=== PATIENT | female | born 1975 | race Caucasian/White ===

== ENCOUNTER 2016-10-14 11:00 | Inpatient (IN) ==
[2016-10-14] MEDS ORDERED: Famotidine 20 MG/2 ML VIAL IVP PRN (11:21)
[2016-10-14] MEDS ORDERED: Naloxone 0.4 MG/ML INJ IVP PRN (11:21)
[2016-10-14] MEDS ORDERED: Ondansetron 4 MG/2 ML VIAL IVP PRN (11:21)
[2016-10-14] MEDS ORDERED: miSOPROStol 25 MCG TABLET VG PRN (11:23)
--- NOTE | 2016-10-14 11:49 | OB/GYN History & Physical ---
Date of Encounter: 10/14/16 Time of Encounter: 11:46 Assessment and Plan (1) 39 weeks gestation of Current visit: Yes Status: Chronic (2) Oligohydramnios Current visit: Yes Status: Acute Plan to augment and deliver. FHT's 130 with contractions Qualifiers: Fetus number: single or unspecified fetus Trimester: third trimester Qualified Code(s): O41.03X0 - Oligohydramnios, third trimester, not applicable or unspecified (3) AMA (advanced maternal age) multigravida 35+ Current visit: Yes Status: Acute Qualifiers: Trimester: third trimester Qualified Code(s): O09.523 - Supervision of elderly multigravida, third trimester (4) Obesity complicating Current visit: Yes Status: Acute History of Present Illness Chief complaint: sent from office with oligohydramnios induction HPI: Ms. Thomason is a 41 year old female G3 P 2-0-0-2 at 39 1/7 weeks seen in office with ultrasound showing BIBIANA 3.9 cm evaluated and sent here for induction of labor. Patient states she has been crampy the past week, but denies contractions , vaginal bleeding, or leaking fluid. She reports good movement. has been complicated by AMA, chronic hypertension, and obesity. Past Med Surg Social Fam HX - Past Medical History Source: patient Medical history: hypertension Psychiatric history: anxiety - Past Surgical History Surgical History: no surgical history - Social History Smoking Status: Former smoker Alcohol use: none Drug use: none Obstetrical History - Pregnancies : 3 Para: 2 Term: 2 : 0 Livin Medications and Allergies Aspirin 81 mg PO DAILY 10/14/16 [History] Methyldopa [Aldomet] 500 mg PO BID 10/14/16 [History] Pnv with Ca,No.72/Iron,Carb/FA [ Plus Iron Tablet] 1 each PO 10/14/16 [ History] Allergies No Known Allergies Allergy (Verified 10/14/16 11:52) Review of System OB All systems PM: reviewed and no additional remarkable complaints except as stated Exam - Constitutional Constitutional: well developed, well nourished, no acute distress, obese - HEENT HEENT: EOMI - Lungs Respiratory exam: CTAB - Cardiovascular Cardiovascular exam: RRR - Abdomen Abdomen: Present: bowel sounds normal, gravid, non tender - Extremities Extremities exam: warm - Cervix Dilation: 3 Effacement: 50 Station: -2 - Comments Comments: Ultrasound today EFW 8 lb 1 oz; BIBIANA 3.9 cm Results All other labs normal. - VTE Reasons for not Prescribing Prophylaxis: Treatment not Indicated - Low risk for VTE
[2016-10-14 11:50] LABS: Basophils # 0.1 K/mcL (0.0-0.2); Basophils % 0.6 %; Eosinophils # 0.2 K/mcL (0.0-0.6); Eosinophils % 1.7 %; Hematocrit 38.7 % (35.3-44.9); Immature Granulocytes % 0.3 % (0-4); Lymphocytes # 2.5 K/mcL (0.6-4.6); Lymphocytes % 24.5 %; Mean Corpuscular HGB Conc 33.6 g/dL (31.6-35.5); Mean Corpuscular Hemoglobin 28.2 pg (28.0-33.3); Mean Corpuscular Volume 83.9 fL (83.0-100.0); Mean Platelet Volume 10.7 fL (9.4-12.4); Monocytes # 0.7 K/mcL (0.0-1.3); Monocytes % 7.3 %; Neutrophils # 6.5 K/mcL (1.6-8.9); Platelet Count 419 K/mcL (140-400); Red Blood Count 4.61 M/mcL (3.82-4.97); Red Cell Distribution Width 16.5 % (11.5-14.5); Segmented Neutrophils % 65.6 %
[2016-10-14] MEDS ORDERED: Lidocaine -MPF 2% 5 ML VIAL INFILT ONE (11:51)
[2016-10-14] MEDS ORDERED: Ringers Solution, Lactated 1,000 ML ONE (12:28)
[2016-10-14] MEDS: Ringers Solution, Lactated 1,000 ML IVC SCH ×3 (12:41→23:00)
--- NOTE | 2016-10-14 13:37 | Anesthesia Evaluation PreOp ---
Date of Encounter: 10/14/16 Time of Encounter: 13:35 - Past History Planned Operation: philip Cardiac History: HTN Pulmonary History: Denies Any Significant HX PRINTING ESTIMATOR History: Denies Any Significant HX Other Medical History: Denies Any Significant HX Anesthesia History: No Prior Anesthetic Complications, Past Anesthesia (wisdom teeth) : Yes (39, ) Alcohol Use: none Drug use: none Medications and Allergies Aspirin 81 mg PO DAILY 10/14/16 [History] Methyldopa [Aldomet] 500 mg PO BID 10/14/16 [History] Pnv with Ca,No.72/Iron,Carb/FA [ Plus Iron Tablet] 1 each PO DAILY 10/14 [History] Allergies No Known Allergies Allergy (Verified 10/14/16 12:00) - Meds/Allergy Pre-op Review Medications Reviewed: Yes Allergies Reviewed: Yes Beta Blockers on Current Med List: No Anesthesia Results - Labs 10/14/16 11:35 Anesthesia Exam O2 Sat Height 1.65 m Weight 126.3 kg 159/86 Height: 65 Weight: 126 - HEENT Pupil (Motor): Pupils equal Mallampati: III Teeth: Normal Oral Opening: Greater than 3 - PRINTING ESTIMATOR LOC: Oriented PRINTING ESTIMATOR Motor: Normal RUE, Normal LUE, Normal RLE, Normal LLE, Normal Face PRINTING ESTIMATOR Sensory: Normal: RUE, LUE, RLE, LLE, Face - Cardiac Rhythm: Regular Murmur: None JVD: No Carotid Bruit: No - Pulmonary Breath Sounds: bilateral Clear Respiratory Effort: Symmetrical Anesthesia Assess/Plan ASA Score: 2 Modified Yulia Scale for Level of Consciousness: Cooperative, oriented, and tranquil Anesthetic Plan: Regional Monitoring Plan: Standard Monitors
[2016-10-14] MEDS ORDERED: Oxytocin 20 units/ LR 1000 mL 20 UNIT/1,000 ML BAG IVC ONE (14:43)
[2016-10-14] MEDS ORDERED: Epidural Premix (fent/bupiv) 110 ML EP ONE ×2 (14:55→22:42)
[2016-10-14] MEDS ORDERED: Bupivacaine-MPF 0.25% 10 ML VIAL ONE (14:55)
[2016-10-14] MEDS ORDERED: *HR* FentaNYL (PF) 100 MCG/2 ML VIAL ONE (14:55)
[2016-10-14] MEDS ORDERED: *HR* FentaNYL (PF) 100 MCG/2 ML VIAL EP ONE (17:13)
[2016-10-14] MEDS ORDERED: Bupivacaine-MPF 0.25% 10 ML VIAL EP ONE (17:13)
[2016-10-14] MEDS ORDERED: EPHEDrine 50 MG/ML VIAL IVP PRN (17:13)
[2016-10-14] MEDS ORDERED: Epidural Premix (fent/bupiv) 110 ML EP SCH (17:15)
--- NOTE | 2016-10-14 17:21 | Anesthesia Procedures ---
Date of Encounter: 10/14/16 Time of Encounter: 14:59 Procedures: Anesthesia - Epidural/Spinal Patient ID/Chart reviewed: Yes Patient examined: Yes OB Eval: Gestational age: 39 OB Eval: : 3 OB Eval: Hx Para: 2 OB Eval: Dilated at (cm): 3 OB Eval: Contractions: Non-stressed pattern Consent Obtained: Yes Supplemental Oxygen: None/Room Air Site Prep: Aseptic Technique, 0.5% Chlorhexidine/Alcohol Patient position: upright Local Anesthetic: Lidocaine 1% Amount of Local Anesthetic used: 3 Touhy Needle Gauge: 18 Touhy Needle Depth (cm): 7 Catheter Depth at Skin (cm): 14 Test Dose (1.5% Lido + Epi): Volume given (mls): 3 Test Dose Result: Negative Loading Dose: 0.25% Marcaine (mls): 5 Loading Dose: Fentanyl (mcg): 100 Loading Dose: Other: 3ml nss Loading Dose Administered: Thru Touhy Needle Infusion Med: 0.125% Bupivacaine w/ 2 mcg/ml Fentanyl Catheter Secured in Place: Tegaderm Interspace Used: L3-L4 Loss of Resistance (AMANDA): Yes Blood: No CSF: No Paresthesia: No Procedure: Strict asepsis, good amanda, one attempt, fhr unchanged Vitals + FHT's: 122/86 hr 87 rr 18
[2016-10-14] MEDS ORDERED: Oxytocin 20 units/ LR 1000 mL 20 UNIT/1,000 ML BAG IVC SCH (18:16)
--- NOTE | 2016-10-14 23:34 | OB Labor Progress Note ---
Date of Encounter: 10/14/16 Time of Encounter: 23:32 Labor Progress Note - Subjective Subjective: Patient comfortable. Denies complaints - Cervix Cervix: 4/50/-3 vertex - Heart Tones Heart Tones: baseline 125, category 1 - Sinclair Sinclair: q 2 minutes - Interventions Interventions: AROM with small amount of clear fluid. IUPC placed without difficulty - Plan Plan: Continue with pitocin induction for oligohydramnios
[2016-10-15] MEDS ORDERED: Epidural Premix (fent/bupiv) 110 ML EP ONE (05:38)
[2016-10-15] MEDS ORDERED: *HR* Ropivacaine/PF 0.2% 10 ML AMPUL ONE (07:47)
[2016-10-15] MEDS ORDERED: *HR* FentaNYL (PF) 100 MCG/2 ML VIAL ONE (07:47)
[2016-10-15] MEDS ORDERED: Oxytocin 20 units/ LR 1000 mL 20 UNIT/1,000 ML BAG IVC SCH (09:04)
--- NOTE | 2016-10-15 09:12 | OB Labor Progress Note ---
Date of Encounter: 10/15/16 Time of Encounter: 09:10 Labor Progress Note - Subjective Subjective: patient needed a redose of her epidural because she was feeling her ctxs, she's now comfortable - Vital Signs Vital Signs: 130-180's/70's-90's(patient has CHTN, the 180 systolic was retaken a minute late and it was mild range, this was before her redose of epidural) - Cervix Cervix: still 0 station, fully dilated - Heart Tones Heart Tones: 125/mod martin/+accels, +non rec martin decels - [place]: irreg - Plan Plan: restart pitocin, cont monitoring strip allow to labor down before pushing
[2016-10-15] MEDS ORDERED: Ketamine *HR* 500 MG/10 ML MDV ONE (10:13)
[2016-10-15] MEDS ORDERED: *HR* Morphine Sulfate/PF 5 MG/10 ML AMPUL ONE (10:15)
[2016-10-15] MEDS ORDERED: *HR* Oxytocin 10 UNIT/ML VIAL IM ONE ×2 (10:19→11:23)
[2016-10-15] MEDS ORDERED: Ringers Solution, Lactated 1,000 ML ONE ×2 (10:19→11:22)
[2016-10-15] MEDS ORDERED: *HR* HYDROmorphone (PF) 1 MG/ML SYRINGE ONE (11:20)
[2016-10-15] MEDS ORDERED: Ondansetron 4 MG/2 ML VIAL ONE (11:21)
[2016-10-15] MEDS ORDERED: *HR* Promethazine 25 MG/ML VIAL IVP PRN (12:10)
[2016-10-15] MEDS ORDERED: Naloxone 0.4 MG/ML INJ IVP PRN (12:10)
[2016-10-15] MEDS ORDERED: Ondansetron 4 MG/2 ML VIAL IVP PRN ×2 (12:10→14:11)
[2016-10-15] MEDS ORDERED: *HR* HYDROmorphone (PF) 1 MG/ML SYRINGE IVP PRN (12:10)
--- NOTE | 2016-10-15 13:45 | OB/GYN Procedure Note ---
Section - Date of procedure: 10/15/16 Preop diagnosis: arrest of descent, category 2 FHT tracing Post-op diagnosis: same Procedure: section Surgeon: Yair Paulino Estimated blood loss (cc): 600 Anesthesiologist: Michael Khan Overnight Caregiver: Tejas Armas Anesthesia Type: Epidural section complications: none Disposition: L&D Recovery Room Specimens: Cord blood - Infant (s) A Delivery Date: 10/15/16 Delivery Time: 10:45 Presentation: vertex Position: RASHAD Route of delivery: other Gender: Female Viability: Viable Pounds: 7 Ounces: 15 at 1 minute: 9 at 5 minutes: 9 Shoulder Dystocia: not encountered Specimens collected: cord blood Placenta: complete extraction Cord: 3 umbilical vessels - Narrative Narrative: PROCEDURE: The patient was taken to the operating room where her epidural anesthesia was reinforced. She was prepped and draped in the usual fashion for the procedure. After adequate epidural level was confirmed, the scalp was utilized to make a transverse incision in the patient's lower abdominal wall. This incision was carried down to the level of the fascia, which was also transversely incised. After adequate hemostasis, the fascia was bluntly and sharply up from the underlying rectus muscle. The rectus muscle was in midline exposing the peritoneum. The peritoneum was carefully grasped and elevated with hemostats. It was entered in an up and down fashion with Metzenbaum scissors. The bladder blade was placed in the lower pole of the incision to protect the bladder. The uterus was palpated and inspected. A thin lower uterine segment was noted. The vertex presentation was confirmed. The scalpel was then utilized to make a transverse incision in the lower uterine wall. A term viable female infant was delivered up through the incision. She had spontaneous respirations. Her cord was clamped and cut and she was delivered off the field to the awaiting nurses. The baby girl was subsequently signed Apgars of 9 at one minute and 9 at five minutes. Her weight was found to be 7 pounds and 15 ounces. The placenta was manually extracted from the endometrial cavity. Ring clamps were placed around the margin of the uterine incision for hemostasis. The uterus was delivered up into the operative field. The endometrial cavity was swiped clean with a moist laparotomy pad. The uterine incision was then closed in a two-layered fashion with 0 Vicryl suture, the first layer interlocking and the second layer imbricating. The uterine incision was noted to be hemostatic upon closure. The uterus was rotated forward, normal tubes and ovaries were noted on both sides. The uterus was then returned to its normal position of the abdominal cavity. The sponge and instrument count was performed for the first time at this point and found to be correct. A final check of the uterine incision confirmed hemostasis. The subcutaneous tissue was then exposed, and the fascia closed with 0 Vicryl suture. The subcutaneous tissue was then inspected. No active bleeding was noted. It was closed with a running length of 3-0 vicryl suture. The skin was then approximated with 4-0 vicryl. The incision was cleansed and sterilely dressed. The patient was transferred to the recovery room in stable condition. The estimated blood loss through the procedure was 600 mL. The sponge and instrument counts were performed two more times during closure and found to be correct each time.
[2016-10-15] MEDS ORDERED: Metoclopramide 10 MG/2 ML VIAL IVP PRN (14:11)
[2016-10-15] MEDS ORDERED: Sennosides 8.6 MG TABLET PO PRN (14:11)
[2016-10-15] MEDS ORDERED: *HR* OxyCODONE/APAP 5/325 TABLET PO PRN (14:11)
[2016-10-15] MEDS ORDERED: Oxytocin 20 units/ LR 1000 mL 20 UNIT/1,000 ML BAG IV SCH (14:15)
[2016-10-15] MEDS: Ibuprofen 600 MG TABLET PO PRN (20:42)
[2016-10-16 05:22] LABS: Basophils # 0.1 K/mcL (0.0-0.2); Basophils % 0.4 %; Eosinophils # 0.1 K/mcL (0.0-0.6); Eosinophils % 0.4 %; Hematocrit 31.4 % (35.3-44.9); Immature Granulocytes % 0.5 % (0-4); Lymphocytes % 11.7 %; Mean Corpuscular HGB Conc 33.4 g/dL (31.6-35.5); Mean Corpuscular Hemoglobin 28.5 pg (28.0-33.3); Mean Corpuscular Volume 85.1 fL (83.0-100.0); Mean Platelet Volume 10.9 fL (9.4-12.4); Monocytes # 1.2 K/mcL (0.0-1.3); Monocytes % 6.7 %; Neutrophils # 14.7 K/mcL (1.6-8.9); Platelet Count 358 K/mcL (140-400); Red Blood Count 3.69 M/mcL (3.82-4.97); Red Cell Distribution Width 16.5 % (11.5-14.5); Segmented Neutrophils % 80.3 %
[2016-10-16 05:45] LABS: Hemoglobin 10.5 g/dL (11.5-15.4); Lymphocytes # 2.1 K/mcL (0.6-4.6)
[2016-10-16] MEDS: Ibuprofen 600 MG TABLET PO PRN ×3 (08:20→22:07)
[2016-10-16] MEDS: Prenatal Vit/FA 1 EACH TABLET PO SCH (08:20)
--- NOTE | 2016-10-16 09:58 | OB/GYN Progress Note ---
Date of Encounter: 10/16/16 Time of Encounter: 09:56 - Assessment and Plan (1) Status post primary low transverse section Current Visit: Yes Status: Acute Continue routine postop/ care discharge home tomorrow (2) Chronic hypertension Current Visit: Yes Status: Acute continue medication as prescribed. Subjective - Subjective Principal diagnosis: postop/ day 1 primary c/s Interval history: Patient is postop day 1 primary section for arrest of descent and cat. II tracing. Patient is meeting day 1 milestones. Will discontinue IV. Plan to discharge home tomorrow. Patient reports: appetite normal, voiding normally, pain well controlled, ambulating normally [place]: doing well, bottle feeding Objective - Vital Signs Latest vital signs: Vital Signs Temp Pulse Resp BP Pulse Ox 10/16/16 08:15 138/96 10/16/16 07:30 98.0 F 93 16 139/85 10/16/16 05:00 97.5 F L 98 16 132/87 98 10/16/16 00:00 98.6 F 98 16 100/55 95 10/15/16 19:30 98.7 F 100 14 147/83 97 10/15/16 17:30 97.9 F 85 18 145/88 95 10/15/16 16:48 97.9 F 84 16 10/15/16 15:35 97.7 F 82 20 144/89 98 10/15/16 15:30 98.0 F 90 17 145/89 90 L 10/15/16 15:00 97.9 F 81 18 140/89 94 L 10/15/16 14:30 97.9 F 83 20 142/90 95 Intake and Output 10/15/16 10/16/16 10/16/16 23:59 07:59 15:59 Intake Total 100 / 100 200 / 200 240 / 240 Output Total 1200 / 1200 1500 / 1500 600 / 600 Balance -1100 / -1100 -1300 / -1300 -360 / -360 Intake: Oral 100 / 100 200 / 200 240 / 240 Output: Urine 600 / 600 Catheter 1200 / 1200 1500 / 1500 Other: Meal Breakfast Percent of Meal Consumed 90% Weight 124 kg Patient Weight 10/16/16 23:59 Weight 124 kg - Exam Lungs: bilateral: normal Chest: Normal S1, Normal S2 Extremities: Present: normal Abdomen: Present: normal appearance, soft Incision: Present: normal, dry, intact, dressed (Garry dressing) Uterus: Present: normal Fundal Height: 2 (U/2) Comments: light lochia, +BS - Labs Labs: Laboratory Results - last 24 hr 10/16/16 04:58 WBC 18.3 H D RBC 3.69 L Hgb 10.5 L D Hct 31.4 L MCV 85.1 MCH 28.5 MCHC 33.4 RDW 16.5 H Plt Count 358 MPV 10.9 Immature Gran % 0.5 Seg Neutrophils % 80.3 Lymphocytes % 11.7 Monocytes % 6.7 Eosinophils % 0.4 Basophils % 0.4 Neutrophils # 14.7 H Lymphocytes # 2.1 Monocytes # 1.2 Eosinophils # 0.1 Basophils # 0.1
[2016-10-16] MEDS: Simethicone 80 MG TAB.CHEW PO PRN ×2 (16:15→22:07)
[2016-10-17] MEDS: Ibuprofen 600 MG TABLET PO PRN (07:00)
--- NOTE | 2016-10-17 08:18 | Discharge Summary ---
Date of Encounter: 10/17/16 Time of Encounter: 08:13 - Discharge Diagnosis (1) Anemia affecting in third trimester Priority: Secondary Status: Acute (2) AMA (advanced maternal age) multigravida 35+ Priority: Secondary Status: Chronic Qualifiers: Trimester: third trimester Qualified Code(s): O09.523 - Supervision of elderly multigravida, third trimester (3) Chronic hypertension Priority: Secondary Status: Chronic (4) Obesity complicating Priority: Secondary Status: Chronic (5) Oligohydramnios Priority: Secondary Status: Resolved Qualifiers: Fetus number: single or unspecified fetus Trimester: third trimester Qualified Code(s): O41.03X0 - Oligohydramnios, third trimester, not applicable or unspecified (6) Status post primary low transverse section Priority: Primary Status: Resolved (7) 39 weeks gestation of Priority: Secondary Status: Resolved - Discharge Medications Prescriptions: Ibuprofen [Motrin] 600 mg PO Q6HR PRN #30 tablet PRN Reason: Cramping OxyCODONE/APAP 5/325 [Percocet 5/325 MG] 1 each PO Q6HR PRN #20 tablet PRN Reason: Moderate pain 4-6 Docusate [Colace] 100 mg PO BID #30 capsule Ferrous Sulfate 325 mg PO DAILY #20 tablet Home Medications: Aspirin 81 mg PO DAILY 10/14/16 [History] Methyldopa [Aldomet] 500 mg PO BID 10/14/16 [History] Pnv with Ca,No.72/Iron,Carb/FA [ Plus Iron Tablet] 1 each PO DAILY 10/14 [History] Docusate [Colace] 100 mg PO BID #30 capsule 10/17/16 [Rx] Ferrous Sulfate 325 mg PO DAILY #20 tablet 10/17/16 [Rx] Ibuprofen [Motrin] 600 mg PO Q6HR PRN #30 tablet 10/17/16 [Rx] OxyCODONE/APAP 5/325 [Percocet 5/325 MG] 1 each PO Q6HR PRN #20 tablet 10/17/16 [Rx] Allergies/Adverse Reactions: Allergies No Known Allergies Allergy (Verified 10/14/16 12:00) Data Procedures and tests throughout hospitalization: Laboratory Tests 10/14/16 10/16/16 11:35 04:58 WBC 10.0 18.3 H D RBC 4.61 3.69 L Hgb 13.0 10.5 L D Hct 38.7 31.4 L MCV 83.9 85.1 MCH 28.2 28.5 MCHC 33.6 33.4 RDW 16.5 H 16.5 H Plt Count 419 H 358 MPV 10.7 10.9 Immature Gran % 0.3 0.5 Seg Neutrophils % 65.6 80.3 Lymphocytes % 24.5 11.7 Monocytes % 7.3 6.7 Eosinophils % 1.7 0.4 Basophils % 0.6 0.4 Neutrophils # 6.5 14.7 H Lymphocytes # 2.5 2.1 Monocytes # 0.7 1.2 Eosinophils # 0.2 0.1 Basophils # 0.1 0.1 Date of admission: 10/14/16 11:00 Primary care physician: Tania Faustin Discharging clinician: Atnonio Jc Anticipated date of discharge: 10/17/16 - Patient Status Disposition: Home, Self-Care Condition: Good Functional capacity at discharge: independent ambulation Overall status at discharge: patient is progressing back to baseline - Discharge Instructions Follow Up With: Yair Paulino MD [Partnered Physician] - - Diet and Activity Activity: increase activity as tolerated Diet: advance to your usual diet Hospital Course Reason for admission: induction of labor Delivery: section Episiotomy: none Laceration: none Other procedures: none complications: none Discharge diagnosis: IUP at term delivered [place] baby: female Time Attestation: Total time spent providing and/or coordinating discharge services: Time Spent: Less than 30 minutes - VTE Reasons for not Prescribing Prophylaxis: Treatment not Indicated - Low risk for VTE Documentation of Mechanical Device: Intermittent pneumatic compression device Exam - Constitutional Vitals: Temp Pulse Resp BP Pulse Ox 98.6 F 94 16 120/69 98 10/16/16 21:20 10/16/16 21:20 10/16/16 21:20 10/17/16 04:10 10/16/16 21:20 General appearance IM: A&O X 3, no acute distress - Respiratory Respiratory exam: Absent: respiratory distress - GI/Abdominal GI/Abdominal exam IM: normal bowel sounds Incision: normal, dry, intact - Extremities Exam Extremities exam IM: Absent: calf tenderness
[2016-10-17] MEDS: Prenatal Vit/FA 1 EACH TABLET PO SCH (08:22)
[2016-10-17] MEDS: Simethicone 80 MG TAB.CHEW PO PRN (08:22)
[2016-10-17 09:15] VITALS: BP 137/88
== END 2016-10-17 11:36 | disposition home or self-care (01) | DRG 765 ==
LOC: 1NENULAB 11:00 → 1NENUOBS 10-15 15:04
PROVIDERS: ADMIT Obstetrics & Gynecology; ATTEND Obstetrics & Gynecology